=== PATIENT | female | born 1980 | race Caucasian/White ===

== ENCOUNTER 2017-01-06 00:18 | Emergency (ER) | payer BC ==
[~2017-01-06] VITALS: Ht 157.5 cm; Wt 68.0 kg
[~2017-01-06 00:18] MED LIST: COZAAR50 MG PO; PRI20 PO; ZOC10 PO
[2017-01-06 00:56] LABS: BASOPHIL % 0.9 % (0-2); PLATELET COUNT 324 x10^3mcL (130-400)
[2017-01-06 00:57] LABS: RED CELL DISTRIBUTION WIDTH 17.8 % (11.5-14.5)
[2017-01-06 01:05] LABS: CALCIUM 8.4 mg/dL (8.5-10.1); CARBON DIOXIDE 21.7 mmol/L (21-32); CHLORIDE SERUM 110 mmol/L (98-107); CREATININE SERUM 0.9 mg/dL (0.6-1.0); GFR1 > 60 mL/min; GLUCOSE SERUM 112 mg/dL (74-106); POTASSIUM SERUM 3.7 mmol/L (3.5-5.1); SODIUM SERUM 146 mmol/L (136-145)
[2017-01-06 01:09] LABS: ALBUMIN 4.1 g/dL (3.4-5.0); ALKALINE PHOSPHATASE 85 U/L (46-116); ALT/SGPT 63 U/L (14-59); AST/SGOT 54 U/L (15-37); BILIRUBIN TOTAL 0.29 mg/dL (0.20-1.00); LIPASE 160 IU/L (73-393); TOTAL PROTEIN, SERUM 8.2 g/dL (6.4-8.2)
[2017-01-06 02:42] VITALS: BP 136/89
== END 2017-01-06 02:42 | disposition home or self-care (01) ==
LOC: ED 00:18
PROVIDERS: Emergency Medicine
DX: R10.12 Left upper quadrant pain (principal); R10.13 Epigastric pain; R11.2 Nausea with vomiting, unspecified; I10 Essential (primary) hypertension
CPT/HCPCS: 36415; J1885; Q0162

== ENCOUNTER 2017-12-22 20:49 | Emergency (ER) | payer BC ==
[~2017-12-22] VITALS: Ht 157.5 cm; Wt 69.8 kg
[2017-12-22 23:16] VITALS: BP 124/82
== END 2017-12-22 23:16 | disposition home or self-care (01) ==
LOC: ED 20:49
DX: J45.909 Unspecified asthma, uncomplicated (principal); I10 Essential (primary) hypertension
CPT/HCPCS: J7512; J7613; Q0092

== ENCOUNTER 2019-01-15 19:50 | Emergency (ER) | payer BC ==
[~2019-01-15] VITALS: Ht 157.5 cm; Wt 70.8 kg
[2019-01-15 20:16] VITALS: Ht 157.5 cm; Wt 70.8 kg
[2019-01-15 20:52] LABS: BASOPHIL % 1.1 % (0-2); PLATELET COUNT 333 x10^3mcL (130-400)
[2019-01-15 20:56] LABS: RED CELL DISTRIBUTION WIDTH 17.8 % (11.5-14.5)
[2019-01-15 21:11] LABS: CALCIUM 9.7 mg/dL (8.5-10.1); CARBON DIOXIDE 24.6 mmol/L (21-32); CHLORIDE SERUM 105 mmol/L (98-107); CREATININE SERUM 0.6 mg/dL (0.6-1.0); GFR1 > 60 mL/min; GLUCOSE SERUM 91 mg/dL (74-106); POTASSIUM SERUM 3.7 mmol/L (3.5-5.1); SODIUM SERUM 139 mmol/L (136-145)
[2019-01-15 21:16] LABS: ALKALINE PHOSPHATASE 93 U/L (46-116); ALT/SGPT 77 U/L (14-59); AST/SGOT 43 U/L (15-37); BILIRUBIN TOTAL 0.26 mg/dL (0.20-1.00)
[2019-01-16 01:34] VITALS: BP 105/74
== END 2019-01-16 01:34 | disposition home or self-care (01) ==
LOC: ED 19:50
PROVIDERS: Emergency Medicine
DX: R19.7 Diarrhea, unspecified (principal); R11.10 Vomiting, unspecified; R42 Dizziness and giddiness; J45.909 Unspecified asthma, uncomplicated; I10 Essential (primary) hypertension
CPT/HCPCS: J1200; J1885; J2405; J2550; J2765; J7030

== ENCOUNTER 2019-05-04 04:56 | Emergency (ER) | payer BC ==
[~2019-05-04] VITALS: Ht 157.5 cm; Wt 68.0 kg
[2019-05-04 05:01] VITALS: Ht 157.5 cm; Wt 68.0 kg
[2019-05-04 05:27] LABS: UA SPECIFIC GRAVITY 1.025 (1.005-1.035); microscopic required? YES; urine erythrocyte NEGATIVE (NEGATIVE)
[2019-05-04 07:00] VITALS: BP 124/78
== END 2019-05-04 07:00 | disposition home or self-care (01) ==
LOC: ED 04:56
PROVIDERS: Emergency Medicine
DX: B37.3 Candidiasis of vulva and vagina (principal); N39.0 Urinary tract infection, site not specified; J45.909 Unspecified asthma, uncomplicated; I10 Essential (primary) hypertension
CPT/HCPCS: 87491; 87591

== ENCOUNTER 2019-12-19 10:02 | Emergency (ER) | payer BC, SELFPAY ==
[~2019-12-19] VITALS: Ht 157.5 cm; Wt 65.8 kg
[2019-12-19 10:08] VITALS: Ht 157.5 cm; Wt 65.8 kg
[2019-12-19 11:18] LABS: BASOPHIL % 0.9 % (0-2); PLATELET COUNT 232 x10^3mcL (130-400)
[2019-12-19 11:50] LABS: CALCIUM 7.9 mg/dL (8.5-10.1); CARBON DIOXIDE 24.7 mmol/L (21-32); CHLORIDE SERUM 106 mmol/L (98-107); CREATININE SERUM 0.6 mg/dL (0.6-1.0); GFR1 > 60 mL/min; GLUCOSE SERUM 99 mg/dL (74-106); POTASSIUM SERUM 3.1 mmol/L (3.5-5.1); SODIUM SERUM 143 mmol/L (136-145)
[2019-12-19 11:52] LABS: RED CELL DISTRIBUTION WIDTH 19.6 % (11.5-14.5)
[2019-12-19 13:59] VITALS: BP 145/92
== END 2019-12-19 13:59 | disposition home or self-care (01) ==
LOC: ED 10:02
PROVIDERS: Emergency Medicine
DX: J45.901 Unspecified asthma with (acute) exacerbation (principal); D64.9 Anemia, unspecified; N92.0 Excessive and frequent menstruation with regular cycle; H02.846 Edema of left eye, unspecified eyelid; H02.843 Edema of right eye, unspecified eyelid; I10 Essential (primary) hypertension
CPT/HCPCS: 36415; 83880; Q0092

== ENCOUNTER 2020-02-06 00:52 | Emergency (ER) | payer BC ==
[~2020-02-06] VITALS: Ht 157.5 cm; Wt 66.7 kg
[2020-02-06 01:00] VITALS: Ht 157.5 cm; Wt 66.7 kg
[2020-02-06 02:46] VITALS: BP 109/73
== END 2020-02-06 02:46 | disposition home or self-care (01) ==
LOC: ED 00:52
DX: T19.2XXA Foreign body in vulva and vagina, initial encounter (principal); J45.901 Unspecified asthma with (acute) exacerbation; F41.9 Anxiety disorder, unspecified; X58.XXXA Exposure to other specified factors, initial encounter; Y93.89 Activity, other specified; Y92.89 Other specified places as the place of occurrence of the external cause; Y99.8 Other external cause status
CPT/HCPCS: 87491; 87591

== ENCOUNTER 2020-09-15 12:21 | Emergency (ER) | payer BC ==
[~2020-09-15] VITALS: Ht 157.5 cm; Wt 65.3 kg
[2020-09-15 12:42] VITALS: Ht 157.5 cm; Wt 65.3 kg
[2020-09-15] MEDS ORDERED: IBU600 M2 PO (13:54)
[2020-09-15 14:07] VITALS: BP 127/90
== END 2020-09-15 14:07 | disposition home or self-care (01) ==
LOC: ED 12:21
DX: S62.511A Displaced fracture of proximal phalanx of right thumb, initial encounter for closed fracture (principal); S63.501A Unspecified sprain of right wrist, initial encounter; S00.83XA Contusion of other part of head, initial encounter; M79.645 Pain in left finger(s); W01.0XXA Fall on same level from slipping, tripping and stumbling without subsequent striking against object, initial encounter; Y93.89 Activity, other specified; Y92.89 Other specified places as the place of occurrence of the external cause; Y99.8 Other external cause status